=== PATIENT | male | born 1980 | race Caucasian/White ===

== ENCOUNTER 2021-08-10 10:29 | Inpatient (IN) | payer MEDICAID, OTHER ==
[~2021-08-10] VITALS: Ht 193 cm; Wt 52.2 kg
[2021-08-10 14:34] LABS: BASOPHILS % 1.1 % (0.0-2.0); EOSINOPHILS % 0.1 % (0.0-5.0); HEMATOCRIT. 29.1 % (42.0-52.0); HEMOGLOBIN. 9.4 g/dL (14.0-18.0); LYMPHOCYTES % 14.2 % (20.0-50.0); MEAN CORPUSCULAR HEMOGLOBIN 33.7 pg (28.0-32.0); MEAN CORPUSCULAR VOLUME 103.7 fL (80.0-94.0); MEAN PLATELET VOLUME 7.6 fl (7.4-10.4); MONOCYTES % 5.1 % (2.0-8.0); NEUTROPHILS % 79.5 % (40.0-76.0); PLATELET 679 x1000/uL (130-400); RED CELL DISTRIBUTION WIDTH 15.6 % (11.6-14.6)
[2021-08-10 14:41] LABS: CHLORIDE 107 mEq/L (98-107)
[2021-08-10] MEDS ORDERED: MORPHINE SULFATE 4 MG/ML CPJ (NOT FOR IM USE) IV ONE (22:00)
[2021-08-10] MEDS ORDERED: IOHEXOL-300 100 ML BOTTLE ONE (22:55)
[2021-08-10] MEDS ORDERED: VANCOMYCIN 1 G PREMIX 200 ML IV SCH (23:00)
[2021-08-10] MEDS ORDERED: PIPERACILLIN/TAZOBACTAM 3.375GM/50ML PREMIX IV ONE (23:00)
[2021-08-10] MEDS ORDERED: PIPERACILLIN/TAZ 3.375G PREMIX 50 ML IV NR (23:00)
[2021-08-11] MEDS ORDERED: IPRATROPIUM/ALBUTEROL 0.5-3(2.5)MG/3ML NEB NEB PRN (00:15)
[2021-08-11] MEDS ORDERED: GUAIFENESIN 200MG/10ML SUGAR FREE UDC PO PRN (00:15)
[2021-08-11] MEDS ORDERED: ONDANSETRON HCL 4MG/2ML INJ IV PRN (00:15)
[2021-08-11] MEDS ORDERED: CLONIDINE 0.1MG TABLET PO PRN (00:15)
[2021-08-11] MEDS ORDERED: ACETAMINOPHEN 325MG TABLET PO PRN (00:15)
[2021-08-11] MEDS ORDERED: MAGNESIUM/ALUMINUM HYDROXIDE/SIMETHICONE 30ML UDC PO PRN (00:15)
[2021-08-11] MEDS ORDERED: DOCUSATE SODIUM 100MG CAPSULE PO PRN (00:15)
[2021-08-11] MEDS: HYDROCODONE/ACETAMINOPHEN 5/325MG TABLET PO PRN ×5 (01:50→21:47)
[2021-08-11] MEDS ORDERED: AMPICILLIN SOD/SULBACTAM NA 1.5 G in SODIUM CHLORIDE 0.9% 50 ML IV SCH (02:00)
[2021-08-11 03:31] LABS: CLARITY URINE CLEAR (CLEAR); COLOR URINE YELLOW (YELLOW); KETONES URINE NEGATIVE (NEGATIVE); LEUKOCYTE ESTERASE URINE NEGATIVE (NEGATIVE); NITRITE URINE NEGATIVE (NEGATIVE); OCCULT BLOOD URINE NEGATIVE (NEGATIVE); PROTEIN URINE NEGATIVE (NEGATIVE); SPECIFIC GRAVITY URINE 1.019 (1.005-1.030); UROBILINOGEN URINE 0.2 E.U./dL (0.2-1.0)
[2021-08-11 03:43] LABS: *AMPHETAMINES SCREEN URINE NEGATIVE (NEGATIVE); CANNABINOID URINE SCREEN NEGATIVE (NEGATIVE); PHENCYCLIDINE URINE SCREEN NEGATIVE (NEGATIVE)
[2021-08-11 03:44] LABS: *BARBITURATES SCREEN URINE NEGATIVE (NEGATIVE); *BENZODIAZEPINES SCREEN URINE NEGATIVE (NEGATIVE); *COCAINE SCREEN URINE NEGATIVE (NEGATIVE); METHADONE URINE SCREEN NEGATIVE (NEGATIVE); OPIATES URINE SCREEN PRESUMTIVE POSITIVE (NEGATIVE)
[2021-08-11 03:48] LABS: BASOPHILS % 1.2 % (0.0-2.0); EOSINOPHILS % 0.5 % (0.0-5.0); HEMATOCRIT. 27.8 % (42.0-52.0); HEMOGLOBIN. 9.5 g/dL (14.0-18.0); LYMPHOCYTES % 18.5 % (20.0-50.0); MEAN CORPUSCULAR HEMOGLOBIN 34.9 pg (28.0-32.0); MEAN CORPUSCULAR VOLUME 102.8 fL (80.0-94.0); MEAN PLATELET VOLUME 7.2 fl (7.4-10.4); MONOCYTES % 8.1 % (2.0-8.0); NEUTROPHILS % 71.7 % (40.0-76.0); PLATELET 543 x1000/uL (130-400); RED BLOOD CELL COUNT 2.71 mill/uL (4.7-6.1); RED CELL DISTRIBUTION WIDTH 15.2 % (11.6-14.6)
[2021-08-11 03:51] LABS: CHLORIDE 106 mEq/L (98-107)
[2021-08-11 03:59] LABS: CREATINE KINASE 19 IU/L (39-308)
[2021-08-11 04:01] LABS: CREATINE KINASE MB FRACTION < 1.0 ng/mL (0.5-3.6)
[2021-08-11] MEDS ORDERED: ENOXAPARIN 40MG/0.4ML SYR SUBCUT SCH (09:00)
[2021-08-11 10:00] VITALS: BP 133/105
[2021-08-11 10:45] VITALS: BP 133/105
[2021-08-11 12:00] VITALS: BP 133/96
[2021-08-11] MEDS: AMPICILLIN SOD/SULBACTAM NA 1.5 G in SODIUM CHLORIDE 0.9% 50 ML IV SCH ×3 (12:27→23:34)
[2021-08-11] MEDS: MORPHINE SULFATE 2 MG/ML CPJ (NOT FOR IM USE) IV PRN ×3 (14:15→23:35)
[2021-08-11 16:00] VITALS: BP 128/79
[2021-08-11] MEDS ORDERED: PNEUMOCOCCAL 23-VAL P-SAC VAC 0.5 ML IM ONE (16:00)
[2021-08-11] MEDS ORDERED: INFLUENZA VACCINE 05/PF 0.5 ML SYRINGE IM ONE (16:00)
[2021-08-11 18:27] LABS: CREATINE KINASE 20 IU/L (39-308); CREATINE KINASE MB FRACTION < 1.0 ng/mL (0.5-3.6)
[2021-08-11 20:00] VITALS: BP 123/93
[2021-08-11] MEDS: CHLORDIAZEPOXIDE 25MG CAPSULE PO SCH (21:26)
[2021-08-12] VITALS: BP 107/70
[2021-08-12] MEDS: HYDROCODONE/ACETAMINOPHEN 5/325MG TABLET PO PRN ×5 (02:06→21:38)
[2021-08-12] MEDS: MORPHINE SULFATE 2 MG/ML CPJ (NOT FOR IM USE) IV PRN ×5 (03:20→20:35)
[2021-08-12 04:00] VITALS: BP 100/68
[2021-08-12] MEDS: CHLORDIAZEPOXIDE 25MG CAPSULE PO SCH ×3 (06:00→21:35)
[2021-08-12] MEDS: AMPICILLIN SOD/SULBACTAM NA 1.5 G in SODIUM CHLORIDE 0.9% 50 ML IV SCH ×3 (06:00→17:16)
[2021-08-12] MEDS: ENOXAPARIN 30MG/0.3ML SYR SUBCUT SCH (11:53)
[2021-08-12 13:58] LABS: BASOPHILS % 0.9 % (0.0-2.0); EOSINOPHILS % 2.2 % (0.0-5.0); HEMATOCRIT. 26.8 % (42.0-52.0); HEMOGLOBIN. 9.3 g/dL (14.0-18.0); LYMPHOCYTES % 27.9 % (20.0-50.0); MEAN CORPUSCULAR HEMOGLOBIN 36.3 pg (28.0-32.0); MEAN CORPUSCULAR VOLUME 104.2 fL (80.0-94.0); MEAN PLATELET VOLUME 7.5 fl (7.4-10.4); PLATELET 446 x1000/uL (130-400); RED BLOOD CELL COUNT 2.57 mill/uL (4.7-6.1); RED CELL DISTRIBUTION WIDTH 15.1 % (11.6-14.6)
[2021-08-12 14:16] LABS: CHLORIDE 106 mEq/L (98-107)
[2021-08-12 20:00] VITALS: BP 107/61
[2021-08-13] VITALS: BP 117/81
[2021-08-13] MEDS: AMPICILLIN SOD/SULBACTAM NA 1.5 G in SODIUM CHLORIDE 0.9% 50 ML IV SCH ×5 (00:06→22:36)
[2021-08-13] MEDS: MORPHINE SULFATE 2 MG/ML CPJ (NOT FOR IM USE) IV PRN ×5 (01:30→20:38)
[2021-08-13] MEDS: HYDROCODONE/ACETAMINOPHEN 5/325MG TABLET PO PRN ×3 (03:06→22:36)
[2021-08-13 04:00] VITALS: BP 120/73
[2021-08-13] MEDS: CHLORDIAZEPOXIDE 25MG CAPSULE PO SCH ×3 (06:05→22:30)
[2021-08-13 07:44] LABS: BASOPHILS % 2.1 % (0.0-2.0); EOSINOPHILS % 2.3 % (0.0-5.0); HEMATOCRIT. 29.6 % (42.0-52.0); HEMOGLOBIN. 9.7 g/dL (14.0-18.0); LYMPHOCYTES % 29.4 % (20.0-50.0); MEAN CORPUSCULAR HEMOGLOBIN 34.3 pg (28.0-32.0); MEAN CORPUSCULAR VOLUME 104.5 fL (80.0-94.0); MEAN PLATELET VOLUME 7.7 fl (7.4-10.4); MONOCYTES % 7.5 % (2.0-8.0); NEUTROPHILS % 58.7 % (40.0-76.0); PLATELET 439 x1000/uL (130-400); RED BLOOD CELL COUNT 2.83 mill/uL (4.7-6.1); RED CELL DISTRIBUTION WIDTH 15.3 % (11.6-14.6)
[2021-08-13 08:00] VITALS: BP 128/91
[2021-08-13 08:09] LABS: CHLORIDE 107 mEq/L (98-107)
[2021-08-13] MEDS: ENOXAPARIN 30MG/0.3ML SYR SUBCUT SCH (11:36)
[2021-08-13 12:00] VITALS: BP 128/84
[2021-08-13 16:00] VITALS: BP 128/84
[2021-08-13 19:58] VITALS: BP 105/71
[2021-08-14] VITALS: BP 117/71
[2021-08-14] MEDS: MORPHINE SULFATE 2 MG/ML CPJ (NOT FOR IM USE) IV PRN ×5 (00:36→20:41)
[2021-08-14] MEDS: HYDROCODONE/ACETAMINOPHEN 5/325MG TABLET PO PRN ×5 (02:40→22:38)
[2021-08-14 04:00] VITALS: BP 104/71
[2021-08-14] MEDS: CHLORDIAZEPOXIDE 25MG CAPSULE PO SCH ×3 (05:28→20:41)
[2021-08-14] MEDS: AMPICILLIN SOD/SULBACTAM NA 1.5 G in SODIUM CHLORIDE 0.9% 50 ML IV SCH ×3 (05:28→17:22)
[2021-08-14 08:00] VITALS: BP 114/83
[2021-08-14] MEDS: ENOXAPARIN 30MG/0.3ML SYR SUBCUT SCH (08:39)
[2021-08-14 12:00] VITALS: BP 109/76
[2021-08-14] MEDS ORDERED: IBUPROFEN 600MG TABLET PO PRN (15:00)
[2021-08-14 16:00] VITALS: BP 115/80
[2021-08-14 20:00] VITALS: BP 112/78
[2021-08-15] VITALS: BP 115/90
[2021-08-15] MEDS: AMPICILLIN SOD/SULBACTAM NA 1.5 G in SODIUM CHLORIDE 0.9% 50 ML IV SCH ×4 (00:49→17:27)
[2021-08-15] MEDS: MORPHINE SULFATE 2 MG/ML CPJ (NOT FOR IM USE) IV PRN ×4 (00:53→20:56)
[2021-08-15] MEDS: HYDROCODONE/ACETAMINOPHEN 5/325MG TABLET PO PRN ×2 (03:14→22:04)
[2021-08-15 04:00] VITALS: BP 101/70
[2021-08-15] MEDS: CHLORDIAZEPOXIDE 25MG CAPSULE PO SCH ×3 (05:27→20:57)
[2021-08-15 08:00] VITALS: BP 106/79
[2021-08-15] MEDS: ENOXAPARIN 30MG/0.3ML SYR SUBCUT SCH (08:32)
[2021-08-15] MEDS ORDERED: MORPHINE SULFATE 2 MG/ML CPJ (NOT FOR IM USE) IV NR (09:30)
[2021-08-15] MEDS ORDERED: NALOXONE HCL 0.4MG/ML VIAL IV PRN (09:45)
[2021-08-15 12:00] VITALS: BP 107/77
[2021-08-15] MEDS: LIDOCAINE 5% PATCH TOP SCH (12:24)
[2021-08-15] MEDS: HYDROCODONE/ACETAMINOPHEN 10/325MG TABLET PO PRN ×2 (13:13→20:07)
[2021-08-15 16:00] VITALS: BP 105/76
[2021-08-15 20:00] VITALS: BP 111/75
[2021-08-16] VITALS: BP 98/68
[2021-08-16] MEDS: AMPICILLIN SOD/SULBACTAM NA 1.5 G in SODIUM CHLORIDE 0.9% 50 ML IV SCH ×3 (00:13→11:39)
[2021-08-16] MEDS: MORPHINE SULFATE 2 MG/ML CPJ (NOT FOR IM USE) IV PRN ×5 (00:45→20:25)
[2021-08-16] MEDS: HYDROCODONE/ACETAMINOPHEN 10/325MG TABLET PO PRN ×2 (01:42→11:39)
[2021-08-16 04:00] VITALS: BP 99/67
[2021-08-16] MEDS: HYDROCODONE/ACETAMINOPHEN 5/325MG TABLET PO PRN ×2 (04:28→17:11)
[2021-08-16] MEDS: CHLORDIAZEPOXIDE 25MG CAPSULE PO SCH (06:03)
[2021-08-16 08:00] VITALS: BP 105/76
[2021-08-16] MEDS: ENOXAPARIN 30MG/0.3ML SYR SUBCUT SCH (09:21)
[2021-08-16] MEDS: LIDOCAINE 5% PATCH TOP SCH (10:50)
[2021-08-16 16:00] VITALS: BP 129/81
[2021-08-16] MEDS ORDERED: CHLORDIAZEPOXIDE 25MG CAPSULE PO SCH (17:00)
[2021-08-16] MEDS: GABAPENTIN 300MG CAPSULE PO SCH ×2 (17:11→21:16)
[2021-08-16 20:00] VITALS: BP 129/81
[2021-08-17] VITALS: BP 118/67
[2021-08-17] MEDS: HYDROCODONE/ACETAMINOPHEN 10/325MG TABLET PO PRN ×2 (01:41→09:42)
[2021-08-17 04:00] VITALS: BP 119/84
[2021-08-17] MEDS: GABAPENTIN 300MG CAPSULE PO SCH ×2 (05:10→16:40)
[2021-08-17 08:00] VITALS: BP 113/79
[2021-08-17] MEDS: LIDOCAINE 5% PATCH TOP SCH (08:56)
[2021-08-17] MEDS: ENOXAPARIN 30MG/0.3ML SYR SUBCUT SCH (09:27)
[2021-08-17 15:15] VITALS: BP 113/79
[2021-08-17 16:00] VITALS: BP 117/89
[2021-08-18 04:10] LABS: HIV SCREEN 4G Non Reactive (Non Reactive)
== END 2021-08-17 21:50 | disposition home or self-care (01) | DRG 139 ==
LOC: ER 10:56 → MICUSO 22:03 → EDBEDREQ 22:10 → EDBEDREQTM 22:10 → 7EST 08-11 10:21 → 5WST 08-16 16:05
PROVIDERS: ADMIT Internal Medicine; ATTEND Internal Medicine
DX: J18.8 Other pneumonia, unspecified organism (principal); E88.09 Other disorders of plasma-protein metabolism, not elsewhere classified; J98.4 Other disorders of lung; D53.9 Nutritional anemia, unspecified; I10 Essential (primary) hypertension; F41.9 Anxiety disorder, unspecified; R74.8 Abnormal levels of other serum enzymes; Z20.822 Contact with and (suspected) exposure to COVID-19; F10.10 Alcohol abuse, uncomplicated; Y90.9 Presence of alcohol in blood, level not specified; R91.1 Solitary pulmonary nodule; Z78.9 Other specified health status; Z87.891 Personal history of nicotine dependence; Z87.01 Personal history of pneumonia (recurrent); F19.11 Other psychoactive substance abuse, in remission; G62.9 Polyneuropathy, unspecified
CPT/HCPCS: 36415; 71045; 71260; 80048; 80053; 80305; 81003; 82550; 82553; 84145; 84484; 85025; 86635; 87116; 87389; 87426; 90686; 90732; 99285; J0295; J1650; J2270; J2543; J3370; Q9967